=== PATIENT | male | born 1970 | race Caucasian/White ===

== ENCOUNTER → 2017-04-01 | Outpatient (CLI) | payer MEDICARE, MEDICAID ==
[~2017-04-01] MED LIST: AMOXIL500 MG PO; CELEXA 20MG TAB20 MG PO; CIPRO 500MG TA500 MG PO; FLEXERIL10 M1 PO; FLEXERIL10 MG PO; GLIPIZIDE10 MG PO; HUMALOG MIX 75/10 ML SC; HUMULIN 70100 UNITS/ SC; IBU-8800 MG PO; IBU800 M1 PO; INDOCIN25 M1 PO; JANUMET 1000 MG1 TAB PO; KEFLEX 500MG.500 MG PO; LEVEMIR100 U/M1 SC; LEVEMIR100 U/M2 SC; LISINOPRIL 10MG10 MG PO; LORTAB 5/500 501 TAB PO; MEDROL 4MG. DOSE4 MG PO; METFORMIN HCL1000 MG PO; METFORMIN1000 MG PO; METHACARBAMOL PO; MOTRIN800 MG PO; NOVOLIN 70/30 710 ML SC; NYSTATIN SUSPEN60 ML PO; PERCOCET 325 MG1 TA3 PO; PHENERGAN 25MG.25 M1 PO; ROBAXIN 500 MG500 MG PO; ROBAXIN-750750 MG PO; SIMVASTATIN10 MG PO; SIMVASTATIN40 MG PO; SKELAXIN 800MG800 MG PO; TESSALON PERLE100 M1 PO; TESSALON PERLE100 MG PO; TRAMADOL 50MG T50 MG PO; Tramadol HCl50 MG PO; ULTRACET 325 MG1 TAB PO; ULTRAM50 MG PO; VICODIN 5/500 T1 TAB PO; VICODIN 7.5/501 EACH PO; VOLTAREN50 MG PO; VOLTAREN75 MG PO; ZITHROMAX Z-PA250 M1 PO
[2017-04-01 20:10] LABS: BUN 10 mg/dL (7-18)
[2017-04-01 20:11] LABS: GFR (ESTIMATED) 80 ML/MIN (>60)
[2017-04-01 22:10] LABS: AMPHETAMINES/METAMPHETAMINES NEGATIVE ng/mL (<1000)
[2017-04-03 05:36] LABS: HBsAg Screen Negative (Negative); Hep A Ab, IgM Negative (Negative); Hep B Core Ab, IgM Negative (Negative); Hep C Virus Ab <0.1 (0.0-0.9)
== END ==
LOC: LAB 17:09
PROVIDERS: Emergency Medicine
DX: I10 Essential (primary) hypertension (principal); R11.0 Nausea; E10.65 Type 1 diabetes mellitus with hyperglycemia; Z79.899 Other long term (current) drug therapy

== ENCOUNTER → 2017-04-24 | Outpatient (CLI) | payer MEDICARE, MEDICAID ==
[2017-04-24 18:24] LABS: AMPHETAMINES/METAMPHETAMINES NEGATIVE ng/mL (<1000)
== END ==
LOC: LAB 17:19
PROVIDERS: Emergency Medicine
DX: Z79.899 Other long term (current) drug therapy (principal)

== ENCOUNTER → 2017-05-25 | Outpatient (CLI) | payer MEDICARE, MEDICAID ==
[2017-05-25 20:13] LABS: AMPHETAMINES/METAMPHETAMINES NEGATIVE ng/mL (<1000)
== END ==
LOC: LAB 15:45
PROVIDERS: Emergency Medicine
DX: Z79.899 Other long term (current) drug therapy (principal)

== ENCOUNTER 2017-06-09 12:29 | Emergency (ER) | payer MEDICARE, MEDICAID ==
[~2017-06-09] VITALS: Ht 180.3 cm; Wt 140.6 kg
--- OUTSIDE RECORDS SUMMARY | 2017-06-09 13:11 | External Medical Summary Rpt ---
Author Author ANNABELLE Hdez, MALIKGRACIELA Production Organization ANNABELLE [employer] Address Unknown Phone Unavailable Results Drugs identified in Urine by Screen method Observa Value Referen Units Interpr Notes Date tion ce etation Range Positive urine drug screen samples are stored for 7 days. Contact the Lab if confirmation of positives is needed. Ampheta NEGATIV <1000 ng/mL No No May 25 mine E informa informa 2016 [Presen tion in tion in 1:45 PM ce] in source source Urine data data by Screen method Barbitura <200 ng/mL No No May 25 gracie informati informati 2016 1:45 [Mass/vol on in on in PM ume] in source source Urine by data data Screen method Benzodiaz 200 ng/mL ng/mL No No May 25 epines informati informati 2016 1:45 [Mass/vol on in on in PM ume] in source source Serum or data data Plasma by Screen method Cocaine <300 ng/g No No May 25 [Mass/vol informati informati 2016 1:45 ume] in on in on in PM Unspecifi source source ed data data specimen Methadone <300 ng/mL No No May 25 informati informati 2016 1:45 [Mass/vol on in on in PM ume] in source source Unspecifi data data ed specimen Opiates <300 ng/mL No No May 25 [Mass/vol informati informati 2016 1:45 ume] in on in on in PM Unspecifi source source ed data data specimen Phencycli <25 ng/mL No No May 25 dine informati informati 2016 1:45 [Mass/vol on in on in PM ume] in source source Unspecifi data data ed specimen 11-Hydr NEGATIV <50 ng/mL No No May 25 oxy E informa informa 2017 delta-9 tion in tion in 1:45 PM source source tetrahy data data drocann abinol [Presen ce] in Unspeci fied specime n Drugs identified in Urine by Screen method Observa Value Referen Units Interpr Notes Date tion ce etation Range Positive urine drug screen samples are stored for 7 days. Contact the Lab if confirmation of positives is needed. Ampheta NEGATIV <1000 ng/mL No No Apr 24 mine E informa informa 2017 [Presen tion in tion in 3:10 PM ce] in source source Urine data data by Screen method Barbitura <200 ng/mL No No Apr 24 gracie informati informati 2016 3:10 [Mass/vol on in on in PM ume] in source source Urine by data data Screen method Benzodiaz 200 ng/mL ng/mL No No Apr 24 epines informati informati 2016 3:10 [Mass/vol on in on in PM ume] in source source Serum or data data Plasma by Screen method Cocaine <300 ng/g No No Apr 24 [Mass/vol informati informati 2016 3:10 ume] in on in on in PM Unspecifi source source ed data data specimen Methadone <300 ng/mL No No Apr 24 informati informati 2016 3:10 [Mass/vol on in on in PM ume] in source source Unspecifi data data ed specimen Opiates <300 ng/mL High This is Apr 24 [Mass/vol an 2016 3:10 ume] in UNCONFIRM PM Unspecifi ED ed result. specimen This result is for medicalpu rposes and/or treatment only. Phencycli <25 ng/mL No No Apr 24 dine informati informati 2016 3:10 [Mass/vol on in on in PM ume] in source source Unspecifi data data ed specimen 11-Hydr NEGATIV <50 ng/mL No No Apr 24 oxy E informa informa 2017 delta-9 tion in tion in 3:10 PM source source tetrahy data data drocann abinol [Presen ce] in Unspeci fied specime n Comprehensive metabolic 2000 panel in Serum or Plasma Observa Value Referen Units Interpr Notes Date tion ce etation Range Albumin/G 1.1 - 1.8 No Normal No Sep 27 lobulin informati informati 2016 3:26 [Mass on in on in PM ratio] in source source Serum or data data Plasma Albumin 3.4 - 5.0 gm/dL Normal No Sep 27 [Mass/vol informati 2016 3:26 ume] in on in PM Serum or source Plasma data Alkaline 46 - 116 U/L High No Sep phosphata informati 2017 3:26 se on in PM [Enzymati source c data activity/ volume] in Serum or Plasma Bilirubin 0.2 - 1.0 mg/dL Normal No Sep 27 .total informati 2016 3:26 [Mass/vol on in PM ume] in source Serum or data Plasma Urea 7 - 18 mg/dL Normal No Sep nitrogen informati 2017 3:26 [Mass/vol on in PM ume] in source Serum or data Plasma Calcium 8.5 - mg/dL Normal No Sep [Mass/vol 10.1 informati 2016 3:26 ume] in on in PM Serum or source Plasma data Chloride 98 - 107 mmoL/L Normal No Sep [Moles/vo informati 2017 3:26 lume] in on in PM Serum or source Plasma data Carbon 21.0 - mmoL/L Normal No Sep dioxide, 32.0 informati 2016 3:26 total on in PM [Moles/vo source lume] in data Serum or Plasma Creatinin 0.70 - mg/dL Normal No Sep e 1.30 informati 2017 3:26 [Mass/vol on in PM ume] in source Serum or data Plasma Estimated >60 ML/MIN No REFERENCE Sep 27 informati RANGE: 2017 3:26 glomerula on in >60 PM r source ML/MIN/1. filtratio data 73 SQUARE n rate METERSIf (GF this patient is -A merican, then multiply theresult by 1.210. Globulin 1.3 - 3.2 gm/dL High No Sep 27 [Mass/vol informati 2017 3:26 ume] in on in PM Serum source data Glucose 74 - 106 mg/dL High No Sep 27 [Mass/vol informati 2017 3:26 ume] in on in PM Serum or source Plasma data Potassium 3.5 - 5.1 mmoL/L Normal No Sep 27 informati 2017 3:26 [Moles/vo on in PM lume] in source Serum or data Plasma Sodium 136 - 145 mmoL/L Normal No Sep 27 [Moles/vo informati 2017 3:26 lume] in on in PM Serum or source Plasma data Aspartate 15 - 37 U/L Low No Sep 27 informati 2017 3:26 aminotran on in PM sferase source [Enzymati data c activity/ volume] in Serum or Plasma Alanine 12 - 78 U/L Normal No Apr 01 aminotran informati 2016 3:26 sferase on in PM [Enzymati source c data activity/ volume] in Serum or Plasma Protein 6.4 - 8.2 gm/dL Normal No Apr 01 [Mass/vol informati 2016 3:26 ume] in on in PM Serum or source Plasma data Hemoglobin A1c in Blood Observa Value Referen Units Interpr Notes Date tion ce etation Range Hemoglo 9.8 0.0 - % High < 6% Apr 01 bin A1c 7.0 NON-CHUY 2016 in BETIC 3:26 PM Blood LEVEL< 7% CONTROL LED DIABETI C LEVEL> 8% POORLY CONTROL LED DIABETI C LEVEL Drugs identified in Urine by Screen method Observa Value Referen Units Interpr Notes Date tion ce etation Range Positive urine drug screen samples are stored for 7 days. Contact the Lab if confirmation of positives is needed. Ampheta NEGATIV <1000 ng/mL No No Apr 01 mine E informa informa 2016 [Presen tion in tion in 3:00 PM ce] in source source Urine data data by Screen method Barbitura <200 ng/mL No No Apr 01 gracie informati informati 2016 3:00 [Mass/vol on in on in PM ume] in source source Urine by data data Screen method Benzodiaz 200 ng/mL ng/mL No No Apr 01 epines informati informati 2016 3:00 [Mass/vol on in on in PM ume] in source source Serum or data data Plasma by Screen method Cocaine <300 ng/g No No Apr 01 [Mass/vol informati informati 2016 3:00 ume] in on in on in PM Unspecifi source source ed data data specimen Methadone <300 ng/mL No No Apr 01 informati informati 2016 3:00 [Mass/vol on in on in PM ume] in source source Unspecifi data data ed specimen Opiates <300 ng/mL High This is Apr 01 [Mass/vol an 2017 3:00 ume] in UNCONFIRM PM Unspecifi ED ed result. specimen This result is for medicalpu rposes and/or treatment only. Phencycli <25 ng/mL No No Apr 01 dine informati informati 2017 3:00 [Mass/vol on in on in PM ume] in source source Unspecifi data data ed specimen 11-Hydr NEGATIV <50 ng/mL No No Apr 01 oxy E informa informa 2017 delta-9 tion in tion in 3:00 PM source source tetrahy data data drocann abinol [Presen ce] in Unspeci fied specime n Opiates and Oxycodone(GC/MS),U Observa Value Referen Units Interpr Notes Date tion ce etation Range Oxycodo Negativ Cutoff= No No Test Mar 04 ne/Oxym e 100 informa informa include 2017 orph tion in tion in s 3:15 PM source source Oxycodo data data ne and [employer] honePer formed at: [facility] [id number] [place], [place] [address]Lab Directo r: Filipe Brink MD, Phone: [phone] Opiates Negativ Cutoff= No No Opiate Mar 04 e 100 informa informa test 2017 tion in tion in include 3:15 PM source source s data data Codeine , Morphin e, Hydromo rphone, Hydroco done. Drugs identified in Urine by Screen method Observa Value Referen Units Interpr Notes Date tion ce etation Range Positive urine drug screen samples are stored for 7 days. Contact the Lab if confirmation of positives is needed. Ampheta NEGATIV <1000 ng/mL No No Mar 04 mine E informa informa 2017 [Presen tion in tion in 3:15 PM ce] in source source Urine data data by Screen method Barbitura <200 ng/mL No No Mar 04 gracie informati informati 2017 3:15 [Mass/vol on in on in PM ume] in source source Urine by data data Screen method Benzodiaz 200 ng/mL ng/mL No No Mar 04 epines informati informati 2017 3:15 [Mass/vol on in on in PM ume] in source source Serum or data data Plasma by Screen method Cocaine <300 ng/g No No Mar 04 [Mass/vol informati informati 2017 3:15 ume] in on in on in PM Unspecifi source source ed data data specimen Methadone <300 ng/mL No No Mar 04 informati informati 2017 3:15 [Mass/vol on in on in PM ume] in source source Unspecifi data data ed specimen Opiates <300 ng/mL No No Mar 04 [Mass/vol informati informati 2017 3:15 ume] in on in on in PM Unspecifi source source ed data data specimen Phencycli <25 ng/mL No No Mar 04 dine informati informati 2017 3:15 [Mass/vol on in on in PM ume] in source source Unspecifi data data ed specimen 11-Hydr NEGATIV <50 ng/mL No No Mar 04 oxy E informa informa 2017 delta-9 tion in tion in 3:15 PM source source tetrahy data data drocann abinol [Presen ce] in Unspeci fied specime n
--- OUTSIDE RECORDS SUMMARY | 2017-06-09 13:11 | External Medical Summary Rpt | CCD ---
Author Author [employer] Organization [employer] Address Unknown Phone Unavailable Purpose Continuity of Care Document - through 2016
--- OUTSIDE RECORDS SUMMARY | 2017-06-09 13:11 | External Medical Summary Rpt | CCD ---
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 Name Role Phone Dotty Jacobson MD, Unavailable Unavailable Dotty Jacobson MD Purpose Continuity of Care Document - 09-06-2012 through 2016 Problems Code Diagnosis DOS Provider Status 250.01 250.01 DIAB 08-25-2013 [facility], [facility] Hospital I [JUVENILE TYPE], NOT UNCNTRLD 815.00 815.00 FX 08-25-2013 [place] METACARPAL [facility] E849.0 E849.0 08-25-2013 [place] ACCIDENT IN [facility] E885.9 E885.9 FALL 08-25-2013 Fede FROM [facility] SLIPPING, Hospital TRIPPING, OR STUMBLING NEC 250.02 250.02 DIAB 08-14-2013 [facility], [facility] Hospital II OR UNSPEC TYPE, UNCONTROLLE D 461.9 461.9 ACUTE 08-14-2013 [place] SINUSITIS [facility] 250.00 250.00 DIAB 09-06-2012 [facility], [facility] Hospital II OR UNSPEC TYPE, NOT UNCNTRLD 462 462 ACUTE 09-06-2012 [place] PHARYNGITIS [facility] 466.0 466.0 ACUTE 09-06-2012 [place] BRONCHITIS [facility] 723.1 723.1 09-06-2012 [place] CERVICALGIA [facility] E10.65 TYPE 1 DIABETES MELLITUS WITH HYPERGLYCEM IA Z79.899 OTHER [employer]PER[employer] (CURRENT) DRUG THERAPY Allergies, Adverse Reactions, Alerts Type Allergy to substance Drug Allergy Adverse Reaction to Substance Substance Reaction Severity INGREDIENT: NO KNOWN Unknown Unknown - NO KNOWN DRUG ALLERGY No Known Allergies - Unknown Mild Nka Clinical Alert Notifications Alert Diabetes: no A1C in the last 6 months Diabetes: no eye exam in the last 365 days Diabetes: no influenza vaccine in the last 365 days Diabetes: no lipid panel in the last 365 days Diabetes: no urine protein screening in the last 365 days Medications Na ND Rx Da Fi Fi Am Da Di Ph RX Ph St me C No te ll ll ou ys ag ar # ys at rm s nt no ma ic us Or Da si cy ia de te s n re d AC 51 02 0 No ET 07 -2 AM 90 0- Lo IN 16 20 ng OP 19 14 er HE 9H N Ac W/ ti CO ve DE IN E #3 TA K SO 00 02 0 No DI 40 -0 UM 97 9- Lo 98 20 ng CH 30 14 er LO 9 RI Ac DE ti ve 0. 9% SO KYLIE TI ON Sa 63 02 0 No li 80 -0 ne 70 9- Lo 10 20 ng Fl 07 14 er us 5 h Ac 10 ti ML ve Sy ri ng e KE 00 02 0 No TO 40 -0 RO 93 9- Lo LA 79 20 ng C 50 14 er 30 1 Ac MG ti /M ve L AL AC 51 02 0 No ET 07 -0 AM 90 9- Lo IN 16 20 ng OP 19 14 er HE 9H N Ac W/ ti CO ve DE IN E #3 TA K CE 00 02 0 No FT 40 -0 RI 97 9- Lo AX 33 20 ng ON 30 14 er E 4 1 Ac GM ti ve AL Le 51 03 0 No vo 07 -0 fl 90 4- Lo ox 03 20 ng ac 52 13 er in 0 Ac 50 ti 0M ve G Ta bl et Be 00 03 0 No nz 60 -0 on 32 4- Lo at 42 20 ng at 62 13 er e 1 10 Ac 0M ti G ve Ca ps ul e AC 51 03 0 No ET 07 -0 AM 90 4- Lo IN 16 20 ng OP 19 13 er HE 9H N Ac W/ ti CO ve DE IN E #3 TA K Vital Signs 08-25-2013 00:44 Name Value Interpretat Reference Comment ion Range BP 70 mm[Hg] Diastolic BP Systolic 132 mm[Hg] Heart 78 /min Rate/Pulse O2% 96 % Respiratory 18 /min Rate 08-24-2013 23:58 Name Value Interpretat Reference Comment ion Range BP 83 mm[Hg] Diastolic BP Systolic 134 mm[Hg] Heart 88 /min Rate/Pulse O2% 98 % Respiratory 20 /min Rate 08-14-2013 20:41 Name Value Interpretat Reference Comment ion Range Body 98.3 [degF] Temperature BP 92 mm[Hg] Diastolic BP Systolic 162 mm[Hg] Heart 75 /min Rate/Pulse O2% 97 % Respiratory 20 /min Rate 08-14-2013 19:03 Name Value Interpretat Reference Comment ion Range BP 64 mm[Hg] Diastolic BP Systolic 126 mm[Hg] Heart 80 /min Rate/Pulse O2% 94 % Respiratory 20 /min Rate 09-06-2012 20:52 Name Value Interpretat Reference Comment ion Range Body 98.8 [degF] Temperature BP 90 mm[Hg] Diastolic BP Systolic 169 mm[Hg] Heart 86 /min Rate/Pulse O2% 95 % Respiratory 22 /min Rate 09-06-2012 20:51 Name Value Interpretat Reference Comment ion Range Body 98.8 [degF] Temperature 09-06-2012 20:22 Name Value Interpretat Reference Comment ion Range BP 97 mm[Hg] Diastolic BP Systolic 164 mm[Hg] Heart 91 /min Rate/Pulse O2% 95 % Respiratory 22 /min Rate Results Labs Lab Lab Date Result Refere Interp Status Commen Order Detail nces retati t Range on Urine 9-analyte drugs of abuse screening (05-25-2017 13:45) Comment: Positive urine drug screen samples are stored for 7 days. Comment: Contact the Lab if confirmation of positives is needed. Urine NEGATIV <1000 complet ampheta 017 E ed mine 13:45 NEGATIV screeni E L ng test ng/mL Urine = <200 complet barbitu 017 NEGATIV ed rates 13:45 E ng/mL measure ment by screen Serum = 200 complet or 017 NEGATIV ng/mL ed plasma 13:45 E ng/mL benzodi azepine s measure m Cocaine = <300 complet 017 NEGATIV ed measure 13:45 E ng/g ment (mass/v olume) Methado = <300 complet ne 017 NEGATIV ed measure 13:45 E ng/mL ment (mass/v olume) Opiates = <300 complet 017 NEGATIV ed measure 13:45 E ng/mL ment (mass/v olume) Phencyc = <25 complet lidine 017 NEGATIV ed measure 13:45 E ng/mL ment (mass/v olume) 11-hydr NEGATIV <50 complet oxy 017 E ed delta-9 13:45 NEGATIV E L tetrahy ng/mL drocann abinol Drugs identified in Urine by Screen method (05-25-2017 13:45) Ampheta -- NEGATIV <1000 complet mine 017 E ed [Presen 13:45 ce] in Urine by Screen method 11-Hydr NEGATIV <50 complet oxy 017 E ed delta-9 13:45 tetrahy drocann abinol [Presen ce] in Unspeci fied specime n Urine 9-analyte drugs of abuse screening (04-24-2017 15:10) Comment: Positive urine drug screen samples are stored for 7 days. Comment: Contact the Lab if confirmation of positives is needed. Urine NEGATIV <1000 complet ampheta 017 E ed mine 15:10 NEGATIV screeni E L ng test ng/mL Urine = <200 complet barbitu 017 NEGATIV ed rates 15:10 E ng/mL measure ment by screen Serum = 200 complet or 017 NEGATIV ng/mL ed plasma 15:10 E ng/mL benzodi azepine s measure m Cocaine = <300 complet 017 NEGATIV ed measure 15:10 E ng/g ment (mass/v olume) Methado = <300 complet ne 017 NEGATIV ed measure 15:10 E ng/mL ment (mass/v olume) Opiates = <300 complet 017 POSITIV ed measure 15:10 E ng/mL ment (mass/v olume) Comment: This is an UNCONFIRMED result. This result is for medical Comment: purposes and/or treatment only. Phencyc = <25 complet lidine 017 NEGATIV ed measure 15:10 E ng/mL ment (mass/v olume) 11-hydr NEGATIV <50 complet oxy 017 E ed delta-9 15:10 NEGATIV E L tetrahy ng/mL drocann abinol Drugs identified in Urine by Screen method (04-24-2017 15:10) Ampheta --2 NEGATIV <1000 complet mine 017 E ed [Presen 15:10 ce] in Urine by Screen method 11-Hydr NEGATIV <50 complet oxy 017 E ed delta-9 15:10 tetrahy drocann abinol [Presen ce] in Unspeci fied specime n Hemoglobin A1c in Blood (04-01-2017 15:26) Hemoglo 9.8 % 0.0% High complet bin A1c 017 - ed in 15:26 7.0% Blood Drugs identified in Urine by Screen method (04-01-2017 15:00) Ampheta NEGATIV <1000 complet mine 017 E ed [Presen 15:00 ce] in Urine by Screen method 11Hydr NEGATIV <50 complet oxy 017 E ed delta-9 15:00 tetrahy drocann abinol [Presen ce] in Unspeci fied specime n Drugs identified in Urine by Screen method (03-04-2017 15:15) Ampheta NEGATIV <1000 complet mine 017 E ed [Presen 15:15 ce] in Urine by Screen method 11Hydr NEGATIV <50 complet oxy 017 E ed delta-9 15:15 tetrahy drocann abinol [Presen ce] in Unspeci fied specime n COMPREHENSIVE METABOLIC PANEL (08-14-2013 18:15) Glucose 255 74-106 complet 014 mg/dL ed Bld-mCn 18:15 c BUN 13 7-18 complet Bld-mCn 014 mg/dL ed c 18:15 Creat 1.1 0.8-1.3 complet SerPl-m 014 mg/dL ed Cnc 18:15 Creat 180 50-200 complet Cl 014 ML/MIN ed predict 18:15 ed SerPl C-G-vRa te GFR/BSA 73 Greater complet .pred 014 ML/MIN than ed SerPl 18:15 60 Schwart z-vRate Sodium 136 136-145 complet SerPl-s 014 mmoL/L ed Cnc 18:15 Potassi 3.7 3.5-5.1 complet um 014 mmoL/L ed SerPl-s 18:15 Cnc Chlorid 99 98-107 complet e 014 mmoL/L ed SerPl-s 18:15 Cnc CO2 28 21.0-32 complet SerPl-s 014 mmoL/L .0 ed Cnc 18:15 Calcium 8.7 8.5-10. complet 014 mg/dL 1 ed SerPl-m 18:15 Cnc Prot 7.2 6.4-8.2 complet SerPl-m 014 gm/dL ed Cnc 18:15 Albumin 3.5 3.4-5.0 complet 014 gm/dL ed SerPl-m 18:15 Cnc Globuli 3.7 1.3-3.2 complet n 014 gm/dL ed Ser-mCn 18:15 c Albumin 0.9 UNK 1.1-1.8 complet /Glob 014 ed SerPl-m 18:15 Rto Bilirub 0.3 0.2-1.0 complet 014 mg/dL ed SerPl-m 18:15 Cnc AST 20 U/L 15-37 complet SerPl-c 014 ed Cnc 18:15 ALT 43 U/L 12-78 complet SerPl-c 014 ed Cnc 18:15 ALP 128 U/L 50-136 complet SerPl-c 014 ed Cnc 18:15 CBC with AUTO DIFF (08-14-2013 18:15) WBC # 08-14-2 9.0 4.8-10. complet Bld 014 K/MM3 8 ed Auto 18:15 RBC # 08-14-2 5.35 4.6-6.2 complet Bld 014 M/mm3 ed Auto 18:15 Hgb 08-14- 14.5 14.1-18 complet Bld-mCn 014 g/dL .0 ed c 18:15 Hct Fr 43.2 % 42.0-52 complet Bld 014 .0 ed 18:15 MCV RBC 80.7 fl 82.2-97 complet 014 .8 ed 18:15 MCH RBC 27.2 pg 27-31.2 complet Qn 014 ed Auto 18:15 MEAN 33.7 31.8-35 complet CORPUSC 014 g/dl .4 ed ULAR 18:15 HGB CONC RDW RBC 14.8 % 11.5-17 complet Auto 014 .5 ed 18:15 Platele 233 142-424 complet t Bld 014 K/mm3 ed Ql 18:15 Manual MEAN 7.4 fl 7.4-10. complet PLATELE 014 4 ed T 18:15 VOLUME Granulo 60.4 % 37.0-80 complet cytes 014 .0 ed Fr Bld 18:15 Auto LYMPH % 30.2 % 10-50 complet 014 ed 18:15 Monocyt 4.8 % 1.7-9.3 complet es Fr 014 ed Bld 18:15 Auto Eosinop 3.8 % 0.1-12. complet hil Fr 014 0 ed Bld 18:15 Auto Basophi 0.8 % 0.1-2.0 complet ls Fr 014 ed Bld 18:15 Auto Granulo 5.4 1.3-8.0 complet cytes # 014 K/mm3 ed Bld 18:15 Auto Lymphoc 2.7 0.7-4.5 complet ytes Fr 014 K/mm3 ed Bld 18:15 Auto Monocyt 0.4 0.1-1.0 complet es # 014 K/mm3 ed Bld 18:15 Auto Eosinop 0.3 0.0-0.4 complet hil # 014 K/mm3 ed Bld 18:15 Auto Basophi 0.1 0-0.2 complet ls # 014 K/MM3 ed Bld 18:15 Auto STREP SCREEN (RAPID) (09-06-2012 19:50) STREP NEGATIV complet SCREEN 013 E ed (RAPID) 19:50 Procedures Procedure DOS Code Location Performer Comment APPLICATI 93.54 Dotty FERRERA OF [facility] Encounters Encounter Start End Date Code Location Performer Type Date Emergency OCTAVIO Jacobson MD (ER) 4 23:41 4 00:45 [facility] Emergency OCTAVIO Jacobson MD (ER) 4 17:52 4 20:46 [facility] Emergency OCTAVIO Jacobson MD (ER) 3 19:56 3 20:52 [facility]
--- OUTSIDE RECORDS SUMMARY | 2017-06-09 13:11 | External Medical Summary Rpt | CCD ---
Author Author , RAIMUNDO ALANIS Address Unknown Phone [email or web address] Immunization Name Date Rout CVX Reac Dose Comm Prov Is Faci e tion ent ider Refu lity Give sed n PPV2 07-2 Intr 33 0.5 Hist PD20 No PD20 3 4-20 amus mL oric 255 255 17 cula al r Info rmat ion - Sour ce Unsp ecif ied
--- OUTSIDE RECORDS SUMMARY | 2017-06-09 13:11 | External Medical Summary Rpt | CCD ---
Author Author , RAIMUNDO ALANIS Address Unknown Phone [email or web address] Immunization Name Date Rout CVX Reac Dose Comm Prov Is Faci e tion ent ider Refu lity Give sed n PPV2 07-2 Intr 33 0.5 Hist PD20 No PD20 3 4-20 amus mL oric 255 255 17 cula al r Info rmat ion - Sour ce Unsp ecif ied
--- OUTSIDE RECORDS SUMMARY | 2017-06-09 13:11 | External Medical Summary Rpt ---
[...] data ne and [employer] honePer formed at: [facility] [id number] [place], [place] [id number]Lab Directo r: Filipe Brink MD, Phone: [phone] Opiates Negativ Cutoff= No No Opiate Mar [...]
--- OUTSIDE RECORDS SUMMARY | 2017-06-09 13:11 | External Medical Summary Rpt | CCD ---
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 Name Role Phone Dotty Jacobson MD, Unavailable Unavailable Dotty Jacobson MD Purpose Continuity of Care Document - 09-06-2012 through 2016 Problems Code Diagnosis DOS Provider Status 250.01 250.01 DIAB 08-25-2013 [facility], [facility] Hospital I [JUVENILE TYPE], NOT UNCNTRLD 815.00 815.00 FX 08-25-2013 [place] METACARPAL [facility] E849.0 E849.0 08-25-2013 [place] ACCIDENT IN [facility] E885.9 E885.9 FALL 08-25-2013 Fede FROM [facility] SLIPPING, Hospital TRIPPING, OR STUMBLING NEC 250.02 250.02 DIAB 08-14-2013 [facility], [facility] Hospital II OR UNSPEC TYPE, UNCONTROLLE D 461.9 461.9 ACUTE 08-14-2013 [place] SINUSITIS [facility] 250.00 250.00 DIAB 09-06-2012 [facility], [facility] Hospital II OR UNSPEC TYPE, NOT UNCNTRLD 462 462 ACUTE 09-06-2012 [place] PHARYNGITIS [facility] 466.0 466.0 ACUTE 09-06-2012 [place] BRONCHITIS [facility] 723.1 723.1 09-06-2012 [place] CERVICALGIA [facility] E10.65 TYPE 1 DIABETES MELLITUS WITH HYPERGLYCEM IA Z79.899 OTHER CONE SEWER (CURRENT) DRUG THERAPY Allergies, Adverse Reactions, Alerts [...] Jacobson MD (ER) 4 23:41 4 00:45 [facility] Emergency OCTAVIO Jacobson MD (ER) 4 17:52 4 20:46 [facility] Emergency OCTAVIO Jacobson MD (ER) 3 19:56 3 20:52 [facility]
--- NOTE | 2017-06-09 14:10 | Urgent Treatment Center Report ---
History of Present Issue Date/Time Seen by Provider 06/09/17 4208 Visit Reason Pt arrived:Walked Presenting Problem:PT C/O SEVERE COUGH AND SEVERE MIGRAINE. PAIN IS IN HIS EYES WITH LIGHT SENSITIVITY. SYMPTOMS STARTED THURSDAY. Location if Accident: Onset of symptoms date/time:/ or onset unknown for:MEDICAL HX UNKNOWN Have you (or family members/close friends) recently traveled outside the [place]? N If Yes, where/when: Have you had exposure to infectious disease within the past month? TB? Other? Specify: pt was sent for triage for discharge prior to being sent to [facility]. c/o cough, feeling feverish, headache, bodyaches starting suddenly on Thursday. Tylenol and motrin once Thursday, no improvement, didn't taken anything else, no flu vaccine this season. Denies hx of migraines. Calling this a migraine because "bad headache". Doesn't know what a migraine would feel like but thinks this would be one. No nausea, vomiting, photophobia. Cough worse with headache, improved if not coughing. Unable to sleep due to coughing. No known sick contacts. Source patient Exam Limitations no limitations ALLERGIES Coded Allergies: No Known Allergies (06/09/17) Home Medications Active Scripts Amoxicillin Trihydrate (Amoxil 500MG Capsule) 500 MG PO Q8 10 Days Ref 1 Prov: 10/01/14 Reported Medications LISINOPRIL (Lisinopril) 10 MG PO DAILY Tramadol Hcl 100 MG PO Q8HP PRN PAIN Glipizide 10 MG PO BID CITALOPRAM HYDROBROMIDE (Citalopram HBr) 20 MG PO DAILY METFORMIN HCL (Metformin 1000MG) 1,000 MG PO BID Simvastatin (Simvastatin 40MG Tab) 40 MG PO QHS Insulin Detemir (Levemir) 20 UNITS SC QHS INSUL REG 30%ISOPHAN 70% HUMAN (Humulin 70-30 Vial) 25 UNITS SC QAM INSUL REG 30%ISOPHAN 70% HUMAN (Humulin 70-30 Vial) 20 UNITS SC 1800 History Medical History General CAD? No Angina: No CA: No Hypertension? No Hyperlipidemia? No CHF? No COPD? No Asthma? No Anemia? No Hernia? Yes Thyroid Problems? No Hypothyroidism? No CVA? No Seizures? No Diabetes? Yes Insulin Dependent: Yes Insulin Pump: No Home FSBS? Yes UTI? No Stones? No GB Disease: No Nephritic Syndrome? No Asplenia? No Hepatitis? No Sickle Cell Disease? No Arthritis? No Cataracts? No Glaucoma? No MRSA? No TB? No Cancer? No Immunization HX DT/Tetanus 5-10 Years Ago Flu 2YRSorMore Pneumonia NEVER Surgical Hx Previous Surgery?Y L. KNEE 23 YRS AGO Family History Family HX Diabetes Yes CAD No Hypertension No Hyperlipidemia No Cancer Yes TB No Social History Smoking Hx Smoker: Former Smoker Tobacco: No Packs/day N/A Alcohol Alcohol: No Review of Systems All Other Systems Reviewed and Negative Constitutional see HPI, chills, diaphoresis ("always"), denies weakness Eyes denies drainage, denies inflammation, denies pain, denies vision change ENT see HPI, nose discharge, nose congestion. denies: ear pain, throat pain. Respiratory see HPI, cough (nonprod), shortness of breath ("slightly with cough"), denies wheezing Cardiovascular denies chest pain, denies palpitations Gastrointestinal denies no symptoms reported Musculoskeletal joint pain ("everything hurts everywhere") Skin denies rash Psychiatric/Neurological see HPI, denies other (dizziness) Physical Exam Vital Signs Vital Signs Date Time Temp Pulse Resp B/P Pulse O2 O2 Flow FiO2 Ox Delivery Rate 06/09 1457 99.0 101 20 135/82 91 06/09 1403 20 06/09 1315 101.7 113 22 130/79 91 06/09 1301 101.7 113 22 130/79 91 General Appearance no apparent distress, obese, unkept appearance Eye Exam - bilateral eye normal exam Ear, Nose, Throat normal ENT inspection, moist mucous membranes Neck non-tender, supple Respiratory Status Yes: trachea midline, chest symmetrical, non tender chest, non productive cough (frequently). No: respiratory distress, use of accessory muscles, pain on inspiration, pain on expiration. Lung Sounds left: rhonchi (base otherwise clear). 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 No Results/Orders Laboratory Tests 06/09/17 1345: Influenza Type A Ag DETECTED H, Influenza Type B Ag NOT DETECTED Current Medication Orders Sig/Doris Start time Last Medication Dose Route Stop Time Status Admin Ketorolac 0 .STK-MED ONE 06/09 1402 DC Tromethamine .ROUTE Ketorolac 60 MG ONCE ONE 06/09 1400 DC 06/09 Tromethamine IM 06/09 1401 1403 Acetaminophen 650 MG ONCE ONE 06/09 1345 DC 06/09 PO 06/09 1346 1339 Acetaminophen 0 .STK-MED ONE 06/09 1338 DC PO Orders Procedure Date/time Status [facility] FLU A,B 06/09 1345 Complete XRAY/CT/US XRAY/CT/US XRAY chest XR interpretation by reviewed by me Xray Results no acute findings, waiting for confirmation from radiologist or ER MD Progress [facility] Progress Notes 1 Date 06/09/17 Time 1400 Comment Headache barely improved since tylenol. Requesting something more. Denies hx of anything that would prevent him from taking NSAIDs. Never been told not to take NSAIDs. [facility] Progress Notes 2 Date 06/09/17 Time 1455 Comment pt reports he can't wait any longer for CXR results. Radiologist remains unavailable and Dr. Devries unable to look at it at this time. 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 Discharged with flu diagnosis and aware I will contact him by phone w/ CXR results. IF pneumonia, will send in antibiotic. If no pneumonia, will send in medication for cough. Headache has improved. Departure Departure Time of Disposition 1451 Disposition DC Home or Self Care(routine) Clinical Impression Primary Impression: Influenza A Condition STABLE Referrals Indira MARY,Filipe Bolaños (Family) IMMEDIATELY for new or worsening symptoms OR no noticeable improvement over the next 72 hours. 911 for difficulty breathing Patient Instructions DI for Influenza -- Adult Additional Instructions * Start Tamiflu today if you are going to take it. Discussed risks and possible benefits. * Lots of rest * Increase fluids, water, gatorade, powerade, pedialyte if /toddler/child * Monitor Temp. Tylenol every 4 hours as needed no more then 5 times a day or 4000mg in 24 hours and/or ibuprofen every 6 hours as needed no more then 3200mg in 24 hours (as long as your primary care doctor has told you that it is ok to take both) for fever/aches/pain. ER if fever no less than 101 despite tylenol and Ibuprofen * you had tylenol in clinic and a toradol shot. Toradol is similiar to ibuprofen so no dose for 6 hours after injection * You (or your child) are contagious until no fever, aches, chills x 24 hours without medication for symptoms. Discharge Counseling Counseled pt/family regarding diagnosis, test results, medications/RX, home care, follow up needs Prescriptions Current Visit Scripts Oseltamivir Phosphate (Tamiflu 75MG Capsule) 75 MG PO BID #10 CAP D-METHORPHAN HB/P-EPD HCL/BPM (Bromfed Dm Cough Syrup) 10 ML PO QIDP PRN cough #240 ML Comments 1615: pt aware of negative CXR per Dr. Fulton, radiologist. I personally spoke to Dr. Fulton, discussed HPI, exam and diagnosis. Feels confident that no pneumonia and no changes in comparison to previous xrays. Agrees to follow up immediately for new or worsening symptoms or if no noticeable improvement with plan of care discussed. at 1756
--- NOTE | 2017-06-09 14:10 | Urgent Treatment Center Report ---
History of Present Issue Date/Time Seen by Provider 06/09/17 4028 Visit Reason Pt arrived:Walked Presenting Problem:PT C/O SEVERE COUGH AND SEVERE MIGRAINE. PAIN IS IN HIS EYES WITH LIGHT SENSITIVITY. SYMPTOMS STARTED THURSDAY. Location if Accident: Onset of symptoms date/time:/ or onset unknown for:MEDICAL HX UNKNOWN Have you (or family members/close friends) recently traveled outside the [place]? N If Yes, where/when: Have you had exposure to infectious disease within the past month? TB? Other? Specify: pt was sent for triage for discharge prior to being sent to [facility]. c/o cough, feeling feverish, headache, bodyaches starting suddenly on Thursday. Tylenol and motrin once Thursday, no improvement, didn't taken anything else, no flu vaccine this season. Denies hx of migraines. Calling this a migraine because "bad headache". Doesn't know what a migraine would feel like but thinks this would be one. No nausea, vomiting, photophobia. Cough worse with headache, improved if not coughing. Unable to sleep due to coughing. No known sick contacts. Source patient Exam Limitations no limitations ALLERGIES Coded Allergies: No Known Allergies (06/09/17) Home Medications Active Scripts Amoxicillin Trihydrate (Amoxil 500MG Capsule) 500 MG PO Q8 10 Days Ref 1 Prov: 10/01/14 Reported Medications LISINOPRIL (Lisinopril) 10 MG PO DAILY Tramadol Hcl 100 MG PO Q8HP PRN PAIN Glipizide 10 MG PO BID CITALOPRAM HYDROBROMIDE (Citalopram HBr) 20 MG PO DAILY METFORMIN HCL (Metformin 1000MG) 1,000 MG PO BID Simvastatin (Simvastatin 40MG Tab) 40 MG PO QHS Insulin Detemir (Levemir) 20 UNITS SC QHS INSUL REG 30%ISOPHAN 70% HUMAN (Humulin 70-30 Vial) 25 UNITS SC QAM INSUL REG 30%ISOPHAN 70% HUMAN (Humulin 70-30 Vial) 20 UNITS SC 1800 History Medical History General CAD? No Angina: No CO: No Hypertension? No Hyperlipidemia? No CHF? No COPD? No Asthma? No Anemia? No Hernia? Yes Thyroid Problems? No Hypothyroidism? No CVA? No Seizures? No Diabetes? Yes Insulin Dependent: Yes Insulin Pump: No Home FSBS? Yes UTI? No Stones? No GB Disease: No Nephritic Syndrome? No Asplenia? No Hepatitis? No Sickle Cell Disease? No Arthritis? No Cataracts? No Glaucoma? No MRSA? No TB? No Cancer? No Immunization HX DT/Tetanus 5-10 Years Ago Flu 2YRSorMore Pneumonia NEVER Surgical Hx Previous Surgery?Y L. KNEE 23 YRS AGO Family History Family HX Diabetes Yes CAD No Hypertension No Hyperlipidemia No Cancer Yes TB No Social History Smoking Hx Smoker: Former Smoker Tobacco: No Packs/day N/A Alcohol Alcohol: No Review of Systems All Other Systems Reviewed and Negative Constitutional see HPI, chills, diaphoresis ("always"), denies weakness Eyes denies drainage, denies inflammation, denies pain, denies vision change ENT see HPI, nose discharge, nose congestion. denies: ear pain, throat pain. Respiratory see HPI, cough (nonprod), shortness of breath ("slightly with cough"), denies wheezing Cardiovascular denies chest pain, denies palpitations Gastrointestinal denies no symptoms reported Musculoskeletal joint pain ("everything hurts everywhere") Skin denies rash Psychiatric/Neurological see HPI, denies other (dizziness) Physical Exam Vital Signs Vital Signs Date Time Temp Pulse Resp B/P Pulse O2 O2 Flow FiO2 Ox Delivery Rate 06/09 1457 99.0 101 20 135/82 91 06/09 1403 20 06/09 1315 101.7 113 22 130/79 91 06/09 1301 101.7 113 22 130/79 91 General Appearance no apparent distress, obese, unkept appearance Eye Exam - bilateral eye normal exam Ear, Nose, Throat normal ENT inspection, moist mucous membranes Neck non-tender, supple Respiratory Status Yes: trachea midline, chest symmetrical, non tender chest, non productive cough (frequently). No: respiratory distress, use of accessory muscles, pain on inspiration, pain on expiration. Lung Sounds left: rhonchi (base otherwise clear). 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 No Results/Orders Laboratory Tests 06/09/17 1345: Influenza Type A Ag DETECTED H, Influenza Type B Ag NOT DETECTED Current Medication Orders Sig/Doris Start time Last Medication Dose Route Stop Time Status Admin Ketorolac 0 .STK-MED ONE 06/09 1402 DC Tromethamine .ROUTE Ketorolac 60 MG ONCE ONE 06/09 1400 DC 06/09 Tromethamine IM 06/09 1401 1403 Acetaminophen 650 MG ONCE ONE 06/09 1345 DC 06/09 PO 06/09 1346 1339 Acetaminophen 0 .STK-MED ONE 06/09 1338 DC PO Orders Procedure Date/time Status [facility] FLU A,B 06/09 1345 Complete XRAY/CT/US XRAY/CT/US XRAY chest XR interpretation by reviewed by me Xray Results no acute findings, waiting for confirmation from radiologist or ER MD Progress [facility] Progress Notes 1 Date 06/09/17 Time 1400 Comment Headache barely improved since tylenol. Requesting something more. Denies hx of anything that would prevent him from taking NSAIDs. Never been told not to take NSAIDs. [facility] Progress Notes 2 Date 06/09/17 Time 1455 Comment pt reports he can't wait any longer for CXR results. Radiologist remains unavailable and Dr. Devries unable to look at it at this time. 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 Discharged with flu diagnosis and aware I will contact him by phone w/ CXR results. IF pneumonia, will send in antibiotic. If no pneumonia, will send in medication for cough. Headache has improved. Departure Departure Time of Disposition 1451 Disposition DC Home or Self Care(routine) Clinical Impression Primary Impression: Influenza A Condition STABLE Referrals Indira MARY,Filipe Bolaños (Family) IMMEDIATELY for new or worsening symptoms OR no noticeable improvement over the next 72 hours. 911 for difficulty breathing Patient Instructions DI for Influenza -- Adult Additional Instructions * Start Tamiflu today if you are going to take it. Discussed risks and possible benefits. * Lots of rest * Increase fluids, water, gatorade, powerade, pedialyte if /toddler/child * Monitor Temp. Tylenol every 4 hours as needed no more then 5 times a day or 4000mg in 24 hours and/or ibuprofen every 6 hours as needed no more then 3200mg in 24 hours (as long as your primary care doctor has told you that it is ok to take both) for fever/aches/pain. ER if fever no less than 101 despite tylenol and Ibuprofen * you had tylenol in clinic and a toradol shot. Toradol is similiar to ibuprofen so no dose for 6 hours after injection * You (or your child) are contagious until no fever, aches, chills x 24 hours without medication for symptoms. Discharge Counseling Counseled pt/family regarding diagnosis, test results, medications/RX, home care, follow up needs Prescriptions Current Visit Scripts Oseltamivir Phosphate (Tamiflu 75MG Capsule) 75 MG PO BID #10 CAP D-METHORPHAN HB/P-EPD HCL/BPM (Bromfed Dm Cough Syrup) 10 ML PO QIDP PRN cough #240 ML Comments 1615: pt aware of negative CXR per Dr. Fulton, radiologist. I personally spoke to Dr. Fulton, discussed HPI, exam and diagnosis. Feels confident that no pneumonia and no changes in comparison to previous xrays. Agrees to follow up immediately for new or worsening symptoms or if no noticeable improvement with plan of care discussed. at 1756
[2017-06-09] MEDS ORDERED: TAMIFLU 75MG CA75 MG PO (14:53)
[2017-06-09 14:57] VITALS: BP 135/82
--- NOTE | 2017-06-09 15:08 | RADIOLOGY REPORT PS360 ---
CHEST(2 VIEWS-NOT PORTABLE) HISTORY: flu +, cough, SOA, SPO2 91-95, smoker ORDERING PHYSICIAN: RICKEY VIERA APRN PATIENT AGE: 47 years COMPARISON: 10/17/2015 FINDINGS: The cardiomediastinal silhouette and pulmonary vascularity are within normal limits. The lungs are clear without infiltrates, suspicious nodules, or pleural effusions. No acute bony abnormalities. IMPRESSION: No change with no acute finding
[2017-06-09] MEDS ORDERED: BROMFED DM COU118 ML PO (17:46)
== END 2017-06-09 14:58 | disposition home or self-care (01) ==
LOC: UTC 12:29 → ER 12:29 → UTC 13:08
DX: J10.1 Influenza due to other identified influenza virus with other respiratory manifestations (principal); E11.9 Type 2 diabetes mellitus without complications; Z79.4 Long term (current) use of insulin; Z79.84 Long term (current) use of oral hypoglycemic drugs

== ENCOUNTER 2017-06-16 18:43 | Emergency (ER) | payer MEDICARE, MEDICAID ==
[~2017-06-16] VITALS: Ht 180.3 cm; Wt 142.9 kg
[~2017-06-16 18:43] MED LIST changes: +BROMFED DM COU118 ML PO; +TAMIFLU 75MG CA75 MG PO
--- OUTSIDE RECORDS SUMMARY | 2017-06-16 18:48 | External Medical Summary Rpt | CCD ---
Author Author , RAIMUNDO ALANIS Address Unknown Phone [email or web address] Immunization Name Date Rout CVX Reac Dose Comm Prov Is Faci e tion ent ider Refu lity Give sed n PPV2 07-2 Intr 33 0.5 Hist PD20 No PD20 3 4-20 amus mL oric 255 255 17 cula al r Info rmat ion - Sour ce Unsp ecif ied
--- OUTSIDE RECORDS SUMMARY | 2017-06-16 18:48 | External Medical Summary Rpt | CCD ---
Author Author , ANNABELLE Organization ANNABELLE Address Unknown Phone [email or web address] Care Team Providers Care Bpm Developer Name Role Phone Dotty Jacobson MD, Unavailable Unavailable Dotty Jacobson MD Purpose Continuity of Care Document - 09-06-2012 through 2016 Problems Code Diagnosis DOS Provider Status 250.01 250.01 DIAB 08-25-2013 [facility], [facility] Hospital I [JUVENILE TYPE], NOT UNCNTRLD 815.00 815.00 FX 08-25-2013 [place] METAC[place] [facility] E849.0 E849.0 08-25-[address] [facility] E885.9 E885.9 FALL 08-25-2013 [place] FROM [facility] SLIPPING, Hospital TRIPPING, OR STUMBLING NEC 250.02 250.02 DIAB 08-14-2013 [facility], [facility] Hospital II OR UNSPEC TYPE, UNCONTROLLE D 461.9 461.9 ACUTE 08-14-2013 [place] SINUSITIS [facility] 250.00 250.00 DIAB 09-06-2012 [facility], [facility] Hospital II OR UNSPEC TYPE, NOT UNCNTRLD 462 462 ACUTE 09-06-2012 [place] PHARYNGITIS [facility] 466.0 466.0 ACUTE 09-06-2012 [place] BRONCHITIS [facility] 723.1 723.1 09-06-2012 [place] CERVICALGIA 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 Allergies, Adverse Reactions, Alerts [...] Order Detail nces retati t Range on Rapid influenza A and B antigen detectio (06-09-2017 13:45) Influen DETECTE NOT complet za A ag 017 D DETECTD ed QL 13:45 DETECTE D L INFLUEN NOT NOT complet ZA B 017 DETECTE DETECTD ed ANTIGEN 13:45 D Comment: LOT # @[id number] EXP DATE @2019-04-04 Influenza virus A+B Ag [Presence] in Unspecified specimen (06-09-2017 13:45) Influen DETECTE NOT Abnorma complet za 017 D DETECTD l ed virus A 13:45 Ag [Presen ce] in Unspeci fied specime n INFLUEN NOT NOT complet ZA B 017 DETECTE DETECTD ed ANTIGEN 13:45 D Urine 9-analyte drugs of abuse screening (05-25-2017 [...] Urine by Screen method (05-25-2017 13:45) Ampheta NEGATIV <1000 complet mine 017 E [...] Urine by Screen method (04-24-2017 15:10) Ampheta NEGATIV <1000 complet mine 017 E [...] 15:00 ce] in Urine by Screen method 11-Hydr NEGATIV <50 complet oxy 017 E ed delta-9 15:00 tetrahy drocann abinol [Presen ce] in Unspeci fied specime n Drugs identified in Urine by Screen method (03-04-2017 15:15) Ampheta NEGATIV <1000 complet mine 017 E ed [Presen 15:15 ce] in Urine by Screen method 11-Hydr NEGATIV <50 complet oxy 017 E ed delta-9 15:15 tetrahy drocann abinol [Presen ce] in Unspeci fied specime n COMPREHENSIVE METABOLIC PANEL (08-14-2013 18:15) Glucose 255 74-106 complet 014 mg/dL ed Bld-mCn 18:15 c BUN 02-09-2 13 7-18 complet Bld-mCn 014 mg/dL ed [...] with AUTO DIFF (08-14-2013 18:15) WBC # 02-09-2 9.0 4.8-10. complet Bld 014 K/MM3 8 ed Auto 18:15 RBC # 02-09-2 5.35 4.6-6.2 complet Bld 014 M/mm3 ed Auto 18:15 Hgb 02-09-2 14.5 14.1-18 complet Bld-mCn 014 g/dL .0 ed c 18:15 Hct Fr 2 43.2 % 42.0-52 complet Bld 014 .0 ed 18:15 MCV RBC 09-2 80.7 fl 82.2-97 complet 014 .8 ed 18:15 MCH RBC 27.2 pg 27-31.2 complet Qn 014 ed Auto 18:15 MEAN 33.7 31.8-35 complet CORPUSC 014 g/dl .4 ed ULAR 18:15 HGB CONC RDW RBC 08-14- 14.8 % 11.5-17 complet Auto 014 .5 ed 18:15 Platele 233 142-424 complet t Bld 014 K/mm3 ed Ql 18:15 Manual MEAN 7.4 fl 7.4-10. complet PLATELE 014 4 ed T 18:15 VOLUME Granulo 08-14-2 60.4 % 37.0-80 complet cytes 014 .0 ed Fr Bld 18:15 Auto LYMPH % 08-14-2 30.2 % 10-50 complet 014 ed 18:15 Monocyt 2 4.8 % 1.7-9.3 complet es Fr 014 ed Bld 18:15 Auto Eosinop 08-14-2 3.8 % 0.1-12. complet hil Fr 014 0 ed Bld 18:15 Auto Basophi 09-2 0.8 % 0.1-2.0 complet ls Fr 014 ed Bld 18:15 Auto Granulo 02-09-2 5.4 1.3-8.0 complet cytes # 014 K/mm3 ed Bld 18:15 Auto Lymphoc 08-14-2 2.7 0.7-4.5 complet ytes Fr 014 K/mm3 ed Bld 18:15 Auto Monocyt 08-14-2 0.4 0.1-1.0 complet es # 014 K/mm3 ed Bld 18:15 Auto Eosinop 0.3 0.0-0.4 complet hil # 014 K/mm3 ed Bld 18:15 Auto Basophi 0.1 0-0.2 complet ls # 014 K/MM3 ed Bld 18:15 Auto STREP SCREEN (RAPID) (09-06-2012 19:50) STREP NEGATIV complet SCREEN 013 E ed (RAPID) 19:50 Procedures Procedure DOS Code Location Performer Comment APPLICATI 93.54 Dotty Bolaños ON OF Indira MARY SPLINT Encounters Encounter Start End Date Code Location Performer Type Date Emergency OCTAVIO Jacobson MD (ER) 4 23:41 4 00:45 [facility] Emergency OCTAVIO Jacobson MD (ER) 4 17:52 4 20:46 [facility] Emergency OCTAVIO Jacobson MD (ER) 3 19:56 3 20:52 [facility]
--- OUTSIDE RECORDS SUMMARY | 2017-06-16 18:48 | External Medical Summary Rpt | CCD ---
Author Author , RAIMUNDO ALANIS Address Unknown Phone [email or web address] Immunization Name Date Rout CVX Reac Dose Comm Prov Is Faci e tion ent ider Refu lity Give sed n PPV2 07-2 Intr 33 0.5 Hist PD20 No PD20 3 4-20 amus mL oric 255 255 17 cula al r Info rmat ion - Sour ce Unsp ecif ied
--- OUTSIDE RECORDS SUMMARY | 2017-06-16 18:48 | External Medical Summary Rpt | CCD ---
Author Author , ANNABELLE Organization ANNABELLE Address Unknown Phone [email or web address] Care Team Providers Care Motion Study Technician Name Role Phone Dotty Jacobson MD, Unavailable Unavailable Dotty Jacobson MD Purpose Continuity of Care Document - 09-06-2012 through 2016 Problems Code Diagnosis DOS Provider Status 250.01 250.01 DIAB 08-25-2013 [facility], [facility] Hospital I [JUVENILE TYPE], NOT UNCNTRLD 815.00 815.00 FX 08-25-2013 [place] METACARPAL [facility] E849.0 E849.0 08-25-2013 [place] ACCIDENT IN [facility] E885.9 E885.9 FALL 08-25-2013 [place] FROM [facility] SLIPPING, Hospital TRIPPING, OR STUMBLING NEC 250.02 250.02 DIAB 08-14-2013 [facility], [facility] Hospital II OR UNSPEC TYPE, UNCONTROLLE D 461.9 461.9 ACUTE 08-14-2013 [place] SINUSITIS [facility] 250.00 250.00 DIAB 09-06-2012 [facility], [facility] Hospital II OR UNSPEC TYPE, NOT UNCNTRLD 462 462 ACUTE 09-06-[address] [place] [address] [facility] 466.0 466.0 ACUTE 09-06-[address] [place] [address] [facility] 723.1 723.1 09-06-[address] [place] [address] 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
--- OUTSIDE RECORDS SUMMARY | 2017-06-16 18:49 | External Medical Summary Rpt ---
Author Author [facility]NA[facility] Hdez, [employer] Organization [employer] Address Unknown Phone Unavailable Results Influenza virus A+B Ag [Presence] in Unspecified specimen Observa Value Referen Units Interpr Notes Date tion ce etation Range Influen DETECTE NOT No Abnorma No Jun 09 za D DETECTD informa l informa 2017 virus A tion in tion in 1:45 PM Ag source source [Presen data data ce] in Unspeci fied specime n INFLUEN NOT NOT No No LOT # Jun 09 ZA B DETECTE DETECTD informa informa @[id number] ANTIGEN D tion in tion in 5 EXP 1:45 PM source source DATE data data @ 9-30 Drugs identified in Urine by Screen method [...] No No May 25 [Mass/vol informati informati 2017 1:45 ume] in on in on in [...] No Apr 24 mine E informa informa 2016 [Presen tion in tion in 3:10 PM ce] in source source Urine data data by Screen method Barbitura <200 ng/mL No No Apr 24 gracie informati informati 2017 3:10 [Mass/vol on in on in PM ume] in source source Urine by data data Screen method Benzodiaz 200 ng/mL ng/mL No No Apr 24 epines informati informati 2017 3:10 [Mass/vol on in on in PM ume] in source source Serum or data data Plasma by Screen method Cocaine <300 ng/g No No Apr 24 [Mass/vol informati informati 2017 3:10 ume] in on in on in PM Unspecifi source source ed data data specimen Methadone <300 ng/mL No No Apr 24 informati informati 2017 3:10 [Mass/vol on in on in PM ume] in source source Unspecifi data data ed specimen Opiates <300 ng/mL High This is Apr 24 [Mass/vol an 2016 3:10 ume] in UNCONFIRM PM Unspecifi ED ed result. specimen This result is for medicalpu rposes and/or treatment only. Phencycli <25 ng/mL No No Apr 24 dine informati informati 2017 3:10 [Mass/vol on in on in PM [...] 3.4 - 5.0 gm/dL Normal No Sep [Mass/vol informati 2016 3:26 ume] in on in PM Serum or source Plasma data Alkaline 46 - 116 U/L High No Sep 27 phosphata informati 2016 3:26 se on in PM [Enzymati source c data activity/ volume] in Serum or Plasma Bilirubin 0.2 - 1.0 mg/dL Normal No Sep .total informati 2016 3:26 [Mass/vol on in PM ume] in source Serum or data Plasma Urea 7 - 18 mg/dL Normal No Sep nitrogen informati 2016 3:26 [Mass/vol on in PM ume] in source Serum or data Plasma Calcium 8.5 - mg/dL Normal No Sep [Mass/vol 10.1 informati 2016 3:26 ume] in on in PM Serum or source Plasma data Chloride 98 - 107 mmoL/L Normal No Sep [Moles/vo informati 2016 3:26 lume] in on in PM Serum or source Plasma data Carbon 21.0 - mmoL/L Normal No Sep dioxide, 32.0 informati 2016 3:26 total on in PM [Moles/vo source lume] in data Serum or Plasma Creatinin 0.70 - mg/dL Normal No Sep 27 e 1.30 informati 2017 3:26 [Mass/vol on [...] gm/dL High No Sep 27 [Mass/vol informati 2016 3:26 ume] in on in PM Serum source data Glucose 74 - 106 mg/dL High No Apr 01 [Mass/vol informati 2016 3:26 ume] in on in PM Serum or source Plasma data Potassium 3.5 - 5.1 mmoL/L Normal No Apr 01 inform2016 3:26 [Moles/vo on in PM lume] in source Serum or data Plasma Sodium 136 - 145 mmoL/L Normal No Apr 01 [Moles/vo inform2016 3:26 lume] in on in PM Serum or source Plasma data Aspartate 15 - 37 U/L Low No Apr 01 inform2016 3:26 aminotran on in PM sferase source [Enzymati data c activity/ volume] in Serum or Plasma Alanine 12 - 78 U/L Normal No Apr 01 aminotran 2016 3:26 sferase on in PM [Enzymati [...] 6% Apr 01 bin A1c 7.0 NON-CHUY 2017 in BETIC 3:26 PM Blood LEVEL< 7% [...] Screen method Benzodiaz 200 ng/mL ng/mL No Apr 01 epines informati informati 2016 3:00 [Mass/vol on in on in PM ume] in source source Serum or data data Plasma by Screen method Cocaine <300 ng/g No Apr 01 [Mass/vol informati informati 2016 [...] data ne and [employer] honePer formed at: [facility] [id number] [place], [place] [id number] Directo r: Filipe Brink MD, Phone: [phone] Opiates Negativ Cutoff= No No Opiate Mar [...] No No Mar 04 [Mass/vol informati informati 2016 3:15 ume] in on in on in PM Unspecifi source source ed data data specimen Methadone <300 ng/mL No No Mar 04 informati informati 2016 3:15 [Mass/vol on in on in PM ume] in source source Unspecifi data data ed specimen Opiates <300 ng/mL No No Mar 04 [Mass/vol informati informati 2016 3:15 ume] in on in on in PM Unspecifi source source ed data data specimen Phencycli <25 ng/mL No No Mar 04 dine informati informati 2016 3:15 [Mass/vol on in on in PM ume] in source source Unspecifi data data ed specimen 11-Hydr NEGATIV <50 ng/mL No No Mar 04 oxy E informa informa 2017 delta-9 tion in tion in 3:15 PM source source tetrahy data data drocann abinol [Presen ce] in Unspeci fied specime n
--- OUTSIDE RECORDS SUMMARY | 2017-06-16 18:49 | External Medical Summary Rpt ---
[...] 09 ZA B DETECTE DETECTD informa informa @[phone] ANTIGEN D tion in tion in 5 [...] [employer] honePer formed at: [facility] [id number] [place], [place] [id number]Lab Directo r: Filipe Brink MD, Phone: [phone] Opiates Negativ Cutoff= No No Opiate Mar [...]
--- NOTE | 2017-06-16 19:21 | Urgent Treatment Center Report ---
See Addendum History of Present Issue Date/Time Seen by Provider 06/16/171919 Visit Reason Pt arrived:Walked Presenting Problem:C/O CHEST CONGESTION/SOA Location if Accident: Onset of symptoms date/time:/ or onset unknown for:MEDICAL HX UNKNOWN Have you (or family members/close friends) recently traveled outside the [place]? N If Yes, where/when: Have you had exposure to infectious disease within the past month? TB? Other? Specify: Patient states that he was diagnosed with flu last week State that he has been having chest congestion cough and congestion States that it has continued to get worse State that he was worried that he may have pneumonia so he came in to get an xray and get checked ALLERGIES Coded Allergies: No Known Allergies (06/09/17) Home Medications Active Scripts Amoxicillin Trihydrate (Amoxil 500MG Capsule) 500 MG PO Q8 10 Days Ref 1 Prov: 10/01/14 Oseltamivir Phosphate (Tamiflu 75MG Capsule) 75 MG PO BID #10 CAP Prov: 06/09/17 D-METHORPHAN HB/P-EPD HCL/BPM (Bromfed Dm Cough Syrup) 10 ML PO QIDP PRN cough #240 ML Prov: 06/09/17 Reported Medications LISINOPRIL (Lisinopril) 10 MG PO DAILY Tramadol Hcl 100 MG PO Q8HP PRN PAIN Glipizide 10 MG PO BID CITALOPRAM HYDROBROMIDE (Citalopram HBr) 20 MG PO DAILY METFORMIN HCL (Metformin 1000MG) 1,000 MG PO BID Simvastatin (Simvastatin 40MG Tab) 40 MG PO QHS Insulin Detemir (Levemir) 20 UNITS SC QHS INSUL REG 30%ISOPHAN 70% HUMAN (Humulin 70-30 Vial) 25 UNITS SC QAM INSUL REG 30%ISOPHAN 70% HUMAN (Humulin 70-30 Vial) 20 UNITS SC 1800 History Medical History General CAD? No Angina: No ND: No Hypertension? No Hyperlipidemia? No CHF? No DVT? No PE? No COPD? No Asthma? No Anemia? No GERD? No Gastric ulcers? No GI Bleed? No Hernia? Yes Thyroid Problems? No Hypothyroidism? No CVA? No Seizures? No Diabetes? Yes Insulin Dependent: Yes Insulin Pump: No Home FSBS? Yes Renal Insuffiency? No UTI? No Stones? No BPH? No GB Disease: No Nephritic Syndrome? No Asplenia? No Hepatitis? No Sickle Cell Disease? No Arthritis? No Migraines? No Cataracts? No Glaucoma? No MRSA? No HIV? No TB? No Anxiety? No Depression? No Cancer? No More? No Immunization HX DT/Tetanus 5-10 Years Ago Flu 2YRSorMore Pneumonia NEVER Surgical Hx Previous Surgery?Y L. KNEE 23 YRS AGO Family History Family HX Diabetes Yes CAD No Hypertension No Hyperlipidemia No Cancer Yes TB No Social History Smoking Hx Smoker: Never Smoker Tobacco: No Packs/day N/A Alcohol Alcohol: No Review of Systems All Other Systems Reviewed and Negative ENT nose congestion, throat pain. Respiratory cough, denies shortness of breath, denies stridor, denies wheezing Physical Exam Vital Signs Vital Signs Date Time Temp Pulse Resp B/P Pulse O2 O2 Flow FiO2 Ox Delivery Rate 06/16 1851 98.4 78 24 169/89 95 General Appearance normal appearance, WD/WN, no apparent distress Ear, Nose, Throat sinus pain/drainage, nasal congestion, Tenderness noted over maxillary sinus, reports dark yellowish/green drainage Respiratory Status Yes: trachea midline, chest symmetrical, non tender chest. No: respiratory distress. Lung Sounds bilateral: normal breath sounds, lungs clear. 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 No Results/Orders Current Medication Orders Sig/Doris Start time Last Medication Dose Route Stop Time Status Admin Methylprednisolone 0 .STK-MED ONE 06/16 1950 DC Sodium Succinate .ROUTE Methylprednisolone 125 MG ONCE ONE 06/16 1930 DC Sodium Succinate IM 06/16 1931 Orders Procedure Date/time Status CHEST(2 VIEWS-NOT PORTABLE) 06/16 1851 Active XRAY/CT/US XRAY/CT/US XRAY chest XR interpretation by reviewed by me Xray Results no infiltrates, No change from previous xray/no acute finding Progress [facility] Progress Notes Comment Patient state that he is a controlled diabetic Patient ordered steriod shot advised patient and educated him that his blood sugar may increase due to steriod however will come back down that steroids often raise blood sugar levels Verbalized understanding Departure Departure Time of Disposition 1926 Disposition DC Home or Self Care(routine) Clinical Impression Primary Impression: Bronchitis Secondary Impressions: Sinusitis Qualifiers: Sinusitis location: unspecified location Chronicity: acute Recurrence: not specified as recurrent Qualified Code: J01.90 - Acute sinusitis, unspecified Condition STABLE Referrals Indira MARY,Filipe Bolaños (Family) Patient Instructions Cough, Guaifenesin Additional Instructions * Monitor Temp. Tylenol and/or Ibuprofen as needed. ER if fever is no less than 101 despite alternating Tylenol and Ibuprofen * Encourage fluids, water, Gatorade, powerade, pedialyte if /toddler/or child * Warm salt water gargles for throat irritation *Warm fluids *Sore throat lozenges *Sleep elevated *humidifier or vaporizer Lots of rest Increase fluids, water, Gatorade, powerade Follow up IMMEDIATELY for new or worsening of symptoms OR no noticeable improvement over the next 48-72 hours. 911 immediately for any life threatening symptoms such as chest pain or difficulty breathing Discharge Counseling Counseled pt/family regarding diagnosis, test results, medications/RX, home care, follow up needs Prescriptions Current Visit Scripts Amoxicillin/Potassium Clav (Augmentin 875-125 Tablet) 1 EACH PO BID #20 TAB Albuterol Sulfate (Proair Hfa) 2 PUFFS IH QID #1 INH Fluticasone Propionate (Flonase 50 Mcg Nasal [place]) 2 SPRAY NA DAILY #1 BOT Guaifenesin (Mucinex) 1,200 MG PO BID #[address] PROMETHAZINE/DEXTROMETHORPHAN (Promethazine-Dm Syrup) 5 ML PO Q4HP PRN cough #150 SYR at 1951
[2017-06-16] MEDS ORDERED: PROAIR HFA0.09 MG/AC IH (19:51)
[2017-06-16] MEDS ORDERED: FLONASE 50 MCG16 GM (19:51)
[2017-06-16] MEDS ORDERED: AUGMENTIN 875-1 EACH PO (19:51)
[2017-06-16] MEDS ORDERED: MUCINEX1200 MG PO (19:51)
[2017-06-16] MEDS ORDERED: PROMETHAZINE D118 ML PO (19:51)
[2017-06-16 20:00] VITALS: BP 169/89
--- NOTE | 2017-06-17 04:46 | RADIOLOGY REPORT PS360 ---
CHEST(2 VIEWS-NOT PORTABLE) HISTORY: SOA ORDERING PHYSICIAN: DEANNE CASTILLO APRN PATIENT AGE: 47 years COMPARISON: 06/09/2017 FINDINGS: The cardiomediastinal silhouette and pulmonary vascularity are within normal limits. The lungs are clear without infiltrates, suspicious nodules, or pleural effusions. No acute bony abnormalities. IMPRESSION: Negative chest, no acute finding
== END 2017-06-16 20:01 | disposition home or self-care (01) ==
LOC: UTC 18:43
DX: J40 Bronchitis, not specified as acute or chronic (principal); J01.90 Acute sinusitis, unspecified

== ENCOUNTER → 2017-06-18 | Outpatient (CLI) | payer MEDICARE, MEDICAID ==
[~2017-06-18] MED LIST changes: +AUGMENTIN 875-1 EACH PO; +FLONASE 50 MCG16 GM; +MUCINEX1200 MG PO; +PROAIR HFA0.09 MG/AC IH; +PROMETHAZINE D118 ML PO
[2017-06-18 14:06] LABS: AMPHETAMINES/METAMPHETAMINES NEGATIVE ng/mL (<1000)
== END ==
LOC: LAB 11:32
PROVIDERS: Emergency Medicine
DX: Z79.899 Other long term (current) drug therapy (principal)